=== PATIENT | male | born 1980 | race Caucasian/White ===

== ENCOUNTER 2021-03-16 04:02 | Inpatient (IN) | payer OTHER ==
[~2021-03-16] VITALS: Ht 180.3 cm; Wt 163.3 kg
[2021-03-16 07:50] LABS: RED BLOOD COUNT 5.67 M/UL (4.20-5.50); WHITE BLOOD COUNT 6.5 K/UL (4.5-11.0)
[2021-03-16 08:18] LABS: BUN/CREATININE RATIO 22 (0-10)
[2021-03-16] MEDS ORDERED: TRAMADOL HCL50 MG PO (13:41)
[2021-03-16] MEDS ORDERED: CELECOXIB200 MG PO (13:41)
[2021-03-16] MEDS ORDERED: POTASSIUM CHLO10 ME2 PO (13:42)
[2021-03-16] MEDS ORDERED: CARVEDILOL6.25 MG PO (13:42)
[2021-03-16] MEDS ORDERED: CHLORTHALIDONE25 MG PO (13:42)
[2021-03-16] MEDS ORDERED: IBU800 MG PO (13:43)
[2021-03-16] MEDS ORDERED: STIOLTO RESPIMAT4 GM INH (13:43)
[2021-03-16] MEDS ORDERED: OMEPRAZOLE40 MG PO (13:43)
[2021-03-16] MEDS ORDERED: FUROSEMIDE40 MG PO (13:44)
[2021-03-16 16:53] LABS: BUN/CREATININE RATIO 20 (0-10)
[2021-03-17 05:53] LABS: HEMOGLOBIN 13.3 gm/dl (14.0-17.5); RED BLOOD COUNT 5.82 M/UL (4.20-5.50); WHITE BLOOD COUNT 6.1 K/UL (4.5-11.0)
[2021-03-17 06:35] LABS: BUN/CREATININE RATIO 17 (0-10)
[2021-03-18 07:21] LABS: HEMOGLOBIN 13.4 gm/dl (14.0-17.5); RED BLOOD COUNT 5.91 M/UL (4.20-5.50); WHITE BLOOD COUNT 7.2 K/UL (4.5-11.0)
[2021-03-18 08:05] LABS: BUN/CREATININE RATIO 13 (0-10)
[2021-03-18 08:13] LABS: HBSAG SCREEN Negative (Negative); HEP A AB, IGM Negative (Negative); HEP B CORE AB, IGM Negative (Negative); HEP C VIRUS AB <0.1 (0.0-0.9)
[2021-03-18] MEDS ORDERED: BACTRIM DS TAB1 EACH PO (11:48)
[2021-03-18] MEDS ORDERED: METFORMIN HCL500 MG PO (11:48)
--- NOTE | 2021-03-18 14:53 | NUR ---
PATIENT GIVEN DISCHARGE INSTRUCTIONS AND DISCHARGE PACKET TO BE SENT HOME WITH. [employer] HAS BEEN AT BEDSIDE GIVING INSTUCTIONS ON HOW TO USE TRILOGY MACHINE AND BROUGHT A PORTABLE OXYGEN TANK FOR THE PATIENT TO TAKE HOME WITH HIM. PATIENTS IVS D/C'D. PATIENT ESCORTED DOWN VIA WHEELCHAIR WITH 5L NASAL CANULA ON.
== END 2021-03-18 15:10 | disposition home or self-care (01) | DRG 193 ==
LOC: ER1 04:02 → CDU 11:19 → CCU 11:19
PROVIDERS: Internal Medicine; Physician Assistant; Physician Assistant Medical; ADMIT Internal Medicine
PROC: 5A09357 Assistance with Respiratory Ventilation, Less than 24 Consecutive Hours, Continuous Positive Airway Pressure (ICD-10-PCS; 2021-03-16)
PROC: B24BZZ4 Ultrasonography of Heart with Aorta, Transesophageal (ICD-10-PCS; principal; 2021-03-17)
DX: J18.9 Pneumonia, unspecified organism (principal); J96.21 Acute and chronic respiratory failure with hypoxia; J96.22 Acute and chronic respiratory failure with hypercapnia; I21.4 Non-ST elevation (NSTEMI) myocardial infarction; E66.2 Morbid (severe) obesity with alveolar hypoventilation; Z20.822 Contact with and (suspected) exposure to COVID-19; G93.49 Other encephalopathy; Z68.43 Body mass index [BMI] 50.0-59.9, adult; L03.115 Cellulitis of right lower limb; E87.1 Hypo-osmolality and hyponatremia; E87.6 Hypokalemia; R73.9 Hyperglycemia, unspecified; I11.0 Hypertensive heart disease with heart failure; D64.9 Anemia, unspecified; R74.01 Elevation of levels of liver transaminase levels; I27.20 Pulmonary hypertension, unspecified; E78.00 Pure hypercholesterolemia, unspecified; I50.9 Heart failure, unspecified; I07.1 Rheumatic tricuspid insufficiency; G47.33 Obstructive sleep apnea (adult) (pediatric); E11.9 Type 2 diabetes mellitus without complications; I87.8 Other specified disorders of veins; Z79.4 Long term (current) use of insulin; Z83.6 Family history of other diseases of the respiratory system
CPT/HCPCS: ECHO; 36415; 36600; 71045; 76705; 80048; 80053; 80074; 82550; 82553; 82803; 82962; 83036; 83605; 83735; 83874; 83880; 84100; 84132; 84484; 85025; 85027; 85379; 85610; 85730; 87040; 93005; 93306; 94640; 94660; 94664; 94760; 96374; 99285; J0692; J1644; J1650; J1940; J2185; J3370; J3475; J7070; U0002